=== PATIENT | male | born 1975 | race Hispanic/Latino ===

== ENCOUNTER 2018-10-17 10:23 | Emergency (ER) | payer OTHER ==
[2018-10-17 10:39] VITALS: BP 110/78
--- NOTE | 2018-10-17 11:21 | Emergency Department Report ---
Chief Complaint: Sore Throat Stated Complaint: THROAT PAIN Time Seen by Provider: 10/17/18 10:47 - HPI History of Present Illness: Patient is a 42-year-old male who presents to ED stating that he was in [facility] physical [facility] when they found a growth in his throat and told him to have it looked at. Patient states that he is difficult that evaluation. He denies any throat pain, throat swelling, difficulty swallowing, fever or mucosa complaints. - ROS Review of Systems: As noted in HPI. Denies SYMPTOMS - Exam Vital Signs: Vital Signs 10/17/18 10:37 Temperature 97.8 F Pulse Rate 91 H Respiratory 18 Rate Blood Pressure 110/78 O2 Sat by Pulse 97 Oximetry Physical Exam: GENERAL: Alert and oriented x3, no apparent distress, Normal Gait, atraumatic. MOUTH:Mouth is well hydrated and without lesions. Tonsils nonerythematous or swollen, Uvula midline, Tongue not elevated. Mucous membranes are moist. Posterior pharynx clear, no exudate or lesions. Patent airways. There is a small cystlike mass seen on the right side of the throat between the tonsils and the uvula NECK: Supple. Non edematous, No carotid bruits. No lymphadenopathy or thyromegaly. No C-spine tenderness SKIN: Warm and dry, No lesions, No ulceration or induration present. MSE screening note: Focused history and physical exam performed. Due to findings the following was ordered: ED Medical Decision Making - Medical Decision Making 43-year-old male presents with a painless small cystlike structure in his throat. Discussed the patient needs to see a ENT doctor. ENT referral is given. Vital signs are normal airway clear no airway compromise ED Disposition for MSE Clinical Impression: Mass of throat Disposition: [id number] TO HOME OR SELFCARE Is pt being admited?: No Does the pt Need Aspirin: No Condition: Stable Instructions: Uvulitis (ED), Tonsillitis (ED) Additional Instructions: Make sure to follow up with the primary care physician as discussed. Take all your medications as you've been prescribed. If you have any worsening symptoms or develop new symptoms please return to ED immediately. Referrals: RAVINDRA BECK MD [Staff Physician] - 3-5 Days GREG PATIÑO MD [Referring] - 3-5 Days Forms: Work/School Release Form(ED) Time of Disposition: 11:27
== END 2018-10-17 11:49 | disposition home or self-care (01) ==
LOC: ED 10:23
DX: K09.8 Other cysts of oral region, not elsewhere classified (principal)
CPT/HCPCS: 99282